=== PATIENT | female | born 1955 ===

== ENCOUNTER → 2018-02-12 | Outpatient (CLI) | payer BC ==
[~2018-02-12] MED LIST: DOCU100 PO; HEMOTOB PR; HYDACE25S PR; LEVSOD100 PO; LIOT25 PO
== END | disposition home or self-care (01) ==
LOC: PLD 11:46 → LAB SHORT 11:46
DX: D23.39 Other benign neoplasm of skin of other parts of face (principal); L01.02 Bockhart's impetigo
CPT/HCPCS: 88305